=== PATIENT | male | born 1995 | race African-American/Black ===

== ENCOUNTER 2016-08-22 21:55 | Emergency (ER) | payer OTHER ==
[2016-08-22 22:21] VITALS: BP 127/79; PULSE 73; TEMP 98.7; BMI 22.4
[2016-08-22] MEDS ORDERED: IBUPROFEN 400 MG TABLET (FP) PO ONE ×2 (22:50→23:06)
--- NOTE | 2016-08-22 22:57 | PDOC ---
History of Present Illness - General Chief Complaint: Injury Stated Complaint: INJURY Time Seen by Provider: 08/22/16 22:37 History Source: Patient Exam Limitations: No Limitations - History of Present Illness Initial Comments: 08/22/16 22:54 21yo Male patient presents to ED c/o left small finger injury sustained while playing basketball today. Denies OTC medication use. Denies any other complaints at this time. Timing/Duration: 1-3 hours Severity: moderate Modifying Factors: worse with: cold therapy, eating, immobilization, medication , movement, rest, other Associated Symptoms: denies: denies symptoms, chest pain, cough, diaphoresis, fever/chills, headaches, loss of appetite, malaise, nausea/vomiting, rash, seizure, shortness of breath, syncope, weakness, other Past History - Travel Traveled outside of the country in the last 30 days: No Close contact w/someone who was outside of country & ill: No - Past Medical History Allergies/Adverse Reactions: Allergies Allergy/AdvReac Type Severity Reaction Status Date / Time No Known Allergies Allergy Verified 08/22/16 22:17 Home Medications: Ambulatory Orders Ibuprofen [Motrin -] 600 mg PO Q6H PRN #30 tablet 08/23/16 Asthma: Yes - Immunization History Immunization Up to Date: Yes - Psycho/Social/Smoking Cessation Hx Anxiety: No Suicidal Ideation: No Smoking History: Never smoked Number of Cigarettes Smoked Daily: 0 Information on smoking cessation initiated: No Hx Alcohol Use: No Drug/Substance Use Hx: No Substance Use Type: None Review of Systems - Review of Systems Able to Perform ROS?: Yes Is the patient limited Guatemalan proficient: No Constitutional: No: Chills, Fever Respiratory: No: Cough, Shortness of Breath, Stridor, Wheezing Cardiac (ROS): No: Chest Pain, Edema, Lightheadedness, Palpitations, Syncope, Chest Tightness Musculoskeletal: Yes: Joint Pain, Joint Swelling. No: Back Pain, Muscle Weakness, Neck Pain All Other Systems: Reviewed and Negative *Physical Exam - Vital Signs Last Vital Signs Temp Pulse Resp BP Pulse Ox 98.7 F 73 14 127/79 99 08/22/16 22:18 08/22/16 22:18 08/22/16 22:18 08/22/16 22:18 08/22/16 22:18 - Physical Exam General Appearance: Yes: Nourished, Appropriately Dressed, Mild Distress. No: Apparent Distress, Moderate Distress, Severe Distress Neck: positive: Trachea midline, Normal Thyroid, Supple. negative: Rigid, Decreased range of motion, Stridor, Rigidity Respiratory/Chest: positive: Lungs Clear, Normal Breath Sounds. negative: Respiratory Distress, Accessory Muscle Use, Labored Respiration, Rapid RR Cardiovascular: positive: Regular Rhythm, Regular Rate. negative: Edema, JVD, Murmur Musculoskeletal: positive: Normal Inspection. negative: CVA Tenderness Extremity: positive: Normal Capillary Refill, Swelling (Left small finger). negative: Normal Inspection, Normal Range of Motion Integumentary: positive: Normal Color, Dry, Warm Neurologic: positive: batch mixer II-XII NML intact, Fully Oriented, Alert, Normal Mood/ Affect, Normal Response, Motor Strength 5/5 Procedures - Splinting Splint Location: Left: Finger (SMALL FINGER) Pre-Proc Neuro Vasc Exam: normal Pre-Made Type: metal Splint Type: Yes: Finger Post-Proc Neuro Vasc Exam: normal Crow Bandage: no Sling: No Complications: No Post splint xray: No Progress: 08/23/16 00:19 PATIENT TOLERATED PROCEDURE WELL. ED Treatment Course - RADIOLOGY Radiology Studies Ordered: Category Date Time Status HAND- LEFT [RAD] Stat Radiology 08/22/16 22:50 Ordered *DC/Admit/Observation/Transfer Diagnosis at time of Disposition: Injury of left little finger Qualifiers: Encounter type: initial encounter Qualified Code(s): S69.92XA - Unspecified injury of left wrist, hand and finger(s), initial encounter - Discharge Dispostion Disposition: HOME Condition at time of disposition: Good Admit: No - Prescriptions Prescriptions: Ibuprofen [Motrin -] 600 mg PO Q6H PRN #30 tablet PRN Reason: Pain - Referrals Referrals: Sp Gordon MD [Staff Physician] - - Patient Instructions Printed Discharge Instructions: Finger Sprain Additional Instructions: FOLLOW UP WITH DR. GORDON (ORTHOPEDIC). CALL TO SCHEDULE APPOINTMENT. APPLY COLD COMPRESS TO AFFECTED AREA EVERY 2-4 HOURS FOR 10-15 MINS ON AND OFF. MOTRIN OR TYLENOL FOR PAIN. NO PHYSICAL ACTIVITY UNTIL SYMPTOMS IMPROVE, OR YOU RUN THE RISK OF RE-INJURING FINGER. Print Language: IRISH
--- NOTE | 2016-08-23 00:21 | PDOC ---
*Physical Exam - Vital Signs Last Vital Signs Temp Pulse Resp BP Pulse Ox 98.7 F 73 14 127/79 99 08/22/16 22:18 08/22/16 22:18 08/22/16 22:18 08/22/16 22:18 08/22/16 22:18 ED Treatment Course - Medications Given in the ED: ED Medications Discontinued Medications Generic Name Dose Route Start Last Admin Trade Name Freq PRN Reason Stop Dose Admin Ibuprofen 800 mg 08/22/16 22:50 08/22/16 23:09 Motrin - PO 08/22/16 22:51 800 mg ONCE ONE Administration Medical Decision Making - Medical Decision Making 08/23/16 00:21 agree with care from [facility] *DC/Admit/Observation/Transfer Diagnosis at time of Disposition: Injury of left little finger Qualifiers: Encounter type: initial encounter Qualified Code(s): S69.92XA - Unspecified injury of left wrist, hand and finger(s), initial encounter - Discharge Dispostion Disposition: HOME Condition at time of disposition: Good - Prescriptions Prescriptions: Ibuprofen [Motrin -] 600 mg PO Q6H PRN #30 tablet PRN Reason: Pain - Referrals Referrals: Sp Gordon MD [Staff Physician] - - Patient Instructions Printed Discharge Instructions: Finger Sprain Additional Instructions: FOLLOW UP WITH DR. GORDON (ORTHOPEDIC). CALL TO SCHEDULE APPOINTMENT. APPLY COLD COMPRESS TO AFFECTED AREA EVERY 2-4 HOURS FOR 10-15 MINS ON AND OFF. MOTRIN OR TYLENOL FOR PAIN. NO PHYSICAL ACTIVITY UNTIL SYMPTOMS IMPROVE, OR YOU RUN THE RISK OF RE-INJURING FINGER. Print Language: KYRGYZ - Post Discharge Activity
== END 2016-08-23 00:26 | disposition home or self-care (01) ==
LOC: JERFT 21:55
PROC: 2W3KX1Z Immobilization of Left Finger using Splint (ICD-10-PCS; principal; 2016-08-22)
DX: S69.82XA Other specified injuries of left wrist, hand and finger(s), initial encounter (principal); W22.8XXA Striking against or struck by other objects, initial encounter; Y93.67 Activity, basketball; Y92.310 Basketball court as the place of occurrence of the external cause; Y99.8 Other external cause status
CPT/HCPCS: 73130-TC-LT; 99281-25

== ENCOUNTER 2017-04-08 16:10 | Emergency (ER) | payer OTHER ==
[2017-04-08 16:25] VITALS: BP 141/86; PULSE 68; TEMP 97.9; BMI 22.4
[2017-04-08 16:48] LABS: URINE APPEARANCE CLEAR; URINE BILIRUBIN NEGATIVE (NEGATIVE); URINE BLOOD NEGATIVE (NEGATIVE); URINE COLOR YELLOW; URINE GLUCOSE (UA) NEGATIVE (NEGATIVE); URINE KETONE NEGATIVE (NEGATIVE); URINE NITRITE NEGATIVE (NEGATIVE); URINE PROTEIN NEGATIVE (NEGATIVE)
[2017-04-08] MEDS ORDERED: AZITHROMYCIN 250 MG TABLET PO ONE (17:10)
[2017-04-08 17:11] LABS: URINE LEUK ESTERASE 1+ (NEGATIVE)
--- NOTE | 2017-04-08 17:16 | PDOC ---
History of Present Illness - General Chief Complaint: Urinary Problem Stated Complaint: STD testing Time Seen by Provider: 04/08/17 16:32 History Source: Patient Exam Limitations: No Limitations - History of Present Illness Initial Comments: 04/08/17 17:11 Patient came to emergency department for evaluation of potential STD. on Friday had an onset of pain and burning with urine and noticed a drainage on Friday evening. Since that time has had some intermittent dysuria but no further discharge. Had history of chlamydia a few years ago with treatment, and states has had unprotected sex recently. His partner does not admit to any symptoms currently. Patient denies fever, nausea vomiting, no recent exercise or trauma. Has appointment with his private physician tomorrow for further STD testing Timing/Duration: unsure Severity: mild Associated Symptoms: reports: denies symptoms Past History - Travel Traveled outside of the country in the last 30 days: No Close contact w/someone who was outside of country & ill: No - Past Medical History Allergies/Adverse Reactions: Allergies Allergy/AdvReac Type Severity Reaction Status Date / Time No Known Allergies Allergy Verified 08/22/16 22:17 Home Medications: Ambulatory Orders Ibuprofen [Motrin -] 600 mg PO Q6H PRN #30 tablet 08/23/16 Asthma: Yes - Immunization History Immunization Up to Date: Yes - Suicide/Smoking/Psychosocial Hx Smoking History: Never smoked Have you smoked in the past 12 months: No Number of Cigarettes Smoked Daily: 0 Information on smoking cessation initiated: No Hx Alcohol Use: Yes (occasionally) Drug/Substance Use Hx: No Substance Use Type: None Review of Systems - Review of Systems Able to Perform ROS?: Yes Is the patient limited Syrian proficient: Yes Constitutional: Yes: Symptoms Reported, See HPI. No: Fever, Malaise HEENTM: Yes: See HPI. No: Symptoms Reported Respiratory: Yes: See HPI. No: Symptoms reported ABD/GI: Yes: See HPI. No: Symptoms Reported, Nausea, Vomiting : Yes: Symptoms Reported, See HPI, Burning, Dysuria, Discharge. No: Urgency, Testicular Mass, Testicular Swelling Neurological: Yes: Symptoms reported All Other Systems: Reviewed and Negative *Physical Exam - Vital Signs Last Vital Signs Temp Pulse Resp BP Pulse Ox 97.9 F 68 16 141/86 100 04/08/17 16:21 04/08/17 16:21 04/08/17 16:21 04/08/17 16:21 04/08/17 16:21 - Physical Exam General Appearance: Yes: Nourished, Appropriately Dressed. No: Apparent Distress HEENT: positive: SALONI, Normal ENT Inspection, TMs Normal, Pharynx Normal Neck: positive: Supple, Lymphadenopathy (L). negative: Tender Respiratory/Chest: positive: Lungs Clear, Normal Breath Sounds Gastrointestinal/Abdominal: positive: Soft. negative: Tender Male Genitalia: positive: normal genitalia. negative: discharge, testicular tenderness, testicular mass, epididymus tender, hernia Musculoskeletal: positive: Normal Inspection Extremity: positive: Normal Capillary Refill, Normal Inspection Integumentary: positive: Dry, Warm, Pale Neurologic: positive: manager market development II-XII NML intact, Fully Oriented, Alert, Normal Mood/ Affect, Normal Response, Motor Strength 5/5 Medical Decision Making - Medical Decision Making 04/08/17 17:13 Dysuria with discharge. Gonorrhea and chlamydia testing pending, will treat with to 250 mg by M Rocephin, and 1 g of by mouth Zithromax. No reaction after 30 minutes. Is following up with PMD tomorrow and recommend syphilis, herpes, and HIV testing then 04/08/17 17:22 *DC/Admit/Observation/Transfer Diagnosis at time of Disposition: STD (male) - Discharge Dispostion Disposition: HOME Condition at time of disposition: Stable Admit: No - Patient Instructions Printed Discharge Instructions: Facts About Sexually Transmitted Infections Additional Instructions: You been treated today with azithromycin 1 g by mouth for treatment of chlamydia You have been treated with Rocephin 250 mg injection for treatment of gonorrhea Always use condoms with the partners Followup with private physician for reevaluation and retesting. Encouraged HIV / syphilis / herpes testing at that visit.
[2017-04-08] MEDS ORDERED: AZITHROMYCIN 250 MG TABLET ONE (17:17)
[2017-04-08 18:03] LABS: URINE MUCUS RARE; URINE RBC 3 /hpf (0-3); URINE WBC 6 /hpf (3-5)
== END 2017-04-08 17:40 | disposition home or self-care (01) ==
LOC: JERFT 16:10
DX: Z11.3 Encounter for screening for infections with a predominantly sexual mode of transmission (principal)
CPT/HCPCS: 36415; 81003; 81015; 87086; 87491; 87591; 96372; 99281-25